=== PATIENT | male | born 1960 | race Caucasian/White ===

== ENCOUNTER → 2017-04-13 | Outpatient (CLI) | payer BC ==
[~2017-04-13] MED LIST: DAZIDOX10 MG PO; ELIQUIS 5MG PO; NORVASC 10MG10 MG PO; PRILOSEC 20MG20 MG PO; PRINIVIL40 MG PO; TAMBOCOR 1100 MG/TAB PO; ZOCOR 20MG20 MG PO
== END ==
LOC: COL.RAD 08:46
DX: M25.512 Pain in left shoulder (principal)
CPT/HCPCS: J3301; Q9967